=== PATIENT | male | born 1960 | race Caucasian/White ===

== ENCOUNTER 2017-11-24 14:17 | Emergency (ER) | payer SELFPAY ==
[2017-11-24 14:26] VITALS: BP 158/79; PULSE 72; TEMP 98; BMI 32.8
[2017-11-24] MEDS ORDERED: DIPHTH,PERTUSS(ACELL),TET 0.5 ML DISP.SYRIN IM ONE (14:27)
--- NOTE | 2017-11-24 14:35 | PDOC ---
Rapid Medical Evaluation Chief Complaint: Injury Time Seen by Provider: 11/24/17 14:27 Medical Evaluation: Allergies Allergy/AdvReac Type Severity Reaction Status Date / Time aspirin Allergy Verified 11/24/17 14:26 Vital Signs Temp Pulse Resp BP Pulse Ox 98 F 72 19 158/79 97 11/24/17 14:23 11/24/17 14:23 11/24/17 14:23 11/24/17 14:23 11/24/17 14:23 11/24/17 14:32 I have performed a brief in-person evaluation of this patient. The patient presents with a chief complaint of L hand lac while handling saw today Pertinent physical exam findings:complicated lac to multiple fingers of L hand I have ordered the following:boostrix The patient will proceed to the ED for further evaluation. Discharge Disposition - Diagnosis Laceration - Referrals - Patient Instructions - Post Discharge Activity
--- NOTE | 2017-11-24 16:36 | PDOC ---
History of Present Illness - General Chief Complaint: Injury Stated Complaint: LEFT HAND INJURY Time Seen by Provider: 11/24/17 14:27 History Source: Patient Exam Limitations: No Limitations - History of Present Illness Occurred: reports: just prior to arrival, this afternoon Pain Location: reports: upper extremity Past History - Past Medical History Allergies/Adverse Reactions: Allergies Allergy/AdvReac Type Severity Reaction Status Date / Time aspirin Allergy Verified 11/24/17 14:26 Home Medications: Ambulatory Orders Clindamycin [Cleocin -] 300 mg PO TID #21 capsule 11/24/17 Oxycodone HCl/Acetaminophen [Percocet 5-325 mg Tablet -] 1 - 2 tab PO Q4H PRN # 10 tablet MDD 4 11/24/17 COPD: No HTN: Yes - Suicide/Smoking/Psychosocial Hx Smoking History: Never smoked Information on smoking cessation initiated: No Hx Alcohol Use: No Drug/Substance Use Hx: No Substance Use Type: None Review of Systems - Review of Systems Able to Perform ROS?: Yes Is the patient limited Irish proficient: Yes Constitutional: Yes: Symptoms Reported, See HPI, Malaise HEENTM: Yes: See HPI. No: Symptoms Reported Respiratory: No: Symptoms reported Integumentary: Yes: Symptoms Reported, See HPI Neurological: Yes: Symptoms reported, See HPI All Other Systems: Reviewed and Negative *Physical Exam - Vital Signs Last Vital Signs Temp Pulse Resp BP Pulse Ox 98 F 72 19 158/79 97 11/24/17 14:23 11/24/17 14:23 11/24/17 14:23 11/24/17 14:23 11/24/17 14:23 - Physical Exam General Appearance: Yes: Nourished, Appropriately Dressed, Apparent Distress, Mild Distress HEENT: positive: MATEUS, Normal ENT Inspection, TMs Normal, Pharynx Normal Neck: negative: Tender Integumentary: positive: Pale, Swelling, Other Neurologic: positive: game artist II-XII NML intact, Fully Oriented, Alert, Normal Response Procedures - Laceration/Wound Repair Left Finger Wound Length: 2.6 to 5.0 cm Wound Explored: contaminated Wound's Depth, Shape: into muscle, stellate, nail-avulsed Irrigated w/ Saline: Yes Betadine Prep: Yes Anesthesia: 1% Lidocaine Wound Repaired With: Sutures *DC/Admit/Observation/Transfer Diagnosis at time of Disposition: Laceration - Discharge Dispostion Disposition: HOME Condition at time of disposition: Stable Decision to Admit order: No - Referrals Referrals: Tonny Mason MD [Staff Physician] - - Patient Instructions Printed Discharge Instructions: DI for Laceration Repair -- Finger Additional Instructions: Rest, elevate, avoid strenuous activity or heavy lifting until sutures are removed Leave dressing on for the next 24 hours, Then may remove dressing gently and wash area with soap and water. Reapply bacitracin ointment and dressing daily for the next 5 days On day #6 keep the wound protected and cover as needed until sutures are removed allowing wound to start to dry Clindamycin 300mg PO Q8H x 1 week May use Tylenol or Motrin for pain relief May use percocet 1 tab every 6 hours for severe pain, will make dizzy and sleepy Suture removal in : 12-14 Days - Post Discharge Activity
== END 2017-11-24 18:41 | disposition home or self-care (01) ==
LOC: JERFT 14:17 → JER 14:17 → JERFT 18:41
PROC: 0HQGXZZ Repair Left Hand Skin, External Approach (ICD-10-PCS; principal; 2017-11-24)
PROC: 3E0234Z Introduction of Serum, Toxoid and Vaccine into Muscle, Percutaneous Approach (ICD-10-PCS; 2017-11-24)
DX: S61.319A Laceration without foreign body of unspecified finger with damage to nail, initial encounter (principal); W45.8XXA Other foreign body or object entering through skin, initial encounter; W27.8XXA Contact with other nonpowered hand tool, initial encounter; Y93.9 Activity, unspecified; Y92.9 Unspecified place or not applicable
CPT/HCPCS: 73130-TC-LR-FY; 99281-25